=== PATIENT | female | born 1965 | race Caucasian/White ===

== ENCOUNTER 2019-08-05 00:09 | Emergency (ER) | payer OTHER ==
[~2019-08-05] VITALS: Ht 147.3 cm; Wt 50.8 kg
[2019-08-05 01:04] LABS: CALCIUM 8.9 mg/dL (8.5-10.1); CREATININE 0.9 mg/dL (0.6-1.3); POTASSIUM 3.6 mmol/L (3.5-5.1)
[2019-08-05 01:07] LABS: PROTIME 9.8 Seconds (9.20-11.50)
[2019-08-05 01:14] LABS: ALBUMIN 3.7 g/dL (3.4-5.0); TOTAL BILIRUBIN 0.1 mg/dL (<0.1-1.0); TOTAL PROTEIN 7.1 g/dL (6.4-8.2)
[2019-08-05 02:35] LABS: ABSOLUTE BASOPHILS 0.1 thou/uL (0.0-0.2); ABSOLUTE EOSINOPHILS 0.2 thou/uL (0.0-0.7); HEMATOCRIT 43.1 % (37.0-47.0); HEMOGLOBIN 14.7 gm/dL (12.0-15.0); WBC 8.8 thou/uL (4.0-11.0)
[2019-08-05 02:42] LABS: ABSOLUTE LYMPHOCYTES 3.8 thou/uL (0.8-5.3); ABSOLUTE MONOCYTES 0.5 thou/uL (0.0-1.2); ABSOLUTE NEUTROPHILS 4.3 thou/uL (1.6-8.1); BASOPHILS 0.7 %; EOSINOPHILS 1.9 %; LYMPHOCYTES 42.9 %; MCH 31.5 pg (26.0-34.0); MCV 92.4 fL (80.0-100.0); MONOCYTES 5.7 %; NUCLEATED RBCS 0 /100WBC; PLATELET COUNT* 330 thou/uL (150-400); POLYS 48.8 %; RBC 4.66 mil/uL (4.20-5.00); RDW-CV 14.3 % (10.5-14.5)
[2019-08-05 03:26] VITALS: BP 111/60
[2019-08-05] MEDS ORDERED: OXYCODONE HCL 55 MG PO (03:28)
[2019-08-05] MEDS ORDERED: FLEXERIL PO (03:28)
[2019-08-05] MEDS ORDERED: TORADOL 10 MG T10 MG PO (03:28)
--- NOTE | 2019-08-05 18:02 | EKG ---
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
== END 2019-08-05 03:26 | disposition home or self-care (01) ==
LOC: M.ERS 00:09
PROVIDERS: Personal Emergency Response Attendant
DX: R07.89 Other chest pain (principal)

== ENCOUNTER 2020-02-18 21:20 | Inpatient (IN) | payer BC ==
[~2020-02-18] VITALS: Ht 147.3 cm; Wt 48.5 kg
[~2020-02-18 21:20] MED LIST: FLEXERIL PO; OXYCODONE HCL 55 MG PO; TORADOL 10 MG T10 MG PO
[2020-02-18 21:24] VITALS: BP 142/74
[2020-02-18] MEDS ORDERED: MOVANA300 MG PO (21:30)
[2020-02-18 21:49] LABS: ABSOLUTE BASOPHILS 0.1 thou/uL (0.0-0.2); ABSOLUTE EOSINOPHILS 0.2 thou/uL (0.0-0.7); ABSOLUTE MONOCYTES 0.4 thou/uL (0.0-1.2); ABSOLUTE NEUTROPHILS 5.4 thou/uL (1.6-8.1); BASOPHILS 0.9 %; EOSINOPHILS 1.9 %; HEMATOCRIT 42.4 % (37.0-47.0); HEMOGLOBIN 14.9 gm/dL (12.0-15.0); LYMPHOCYTES 32.7 %; MCH 32.1 pg (26.0-34.0); MCHC 35.2 g/dL (28.0-37.0); MCV 91.3 fL (80.0-100.0); MONOCYTES 4.9 %; MPV 6.7 fl. (7.2-11.1); NUCLEATED RBCS 0 /100WBC; PLATELET COUNT* 300 thou/uL (150-400); POLYS 59.6 %; RBC 4.65 mil/uL (4.20-5.00); RDW-CV 14.2 % (10.5-14.5); WBC 9.1 thou/uL (4.0-11.0)
[2020-02-18 22:03] LABS: CALCIUM 8.8 mg/dL (8.5-10.1); CREATININE 0.7 mg/dL (0.6-1.3); POTASSIUM 3.7 mmol/L (3.5-5.1)
[2020-02-18 22:11] LABS: ALBUMIN 3.7 g/dL (3.4-5.0); MAGNESIUM 2.1 mg/dL (1.8-2.4); TOTAL BILIRUBIN 0.1 mg/dL (<0.1-1.0); TOTAL PROTEIN 7.1 g/dL (6.4-8.2)
[2020-02-18 22:21] LABS: URINE BILIRUBIN NEGATIVE (Negative); URINE BLOOD TRACE (Negative); URINE CLARITY CLEAR; URINE COLOR YELLOW; URINE GLUCOSE-RANDOM NEGATIVE (Negative); URINE KETONES NEGATIVE (Negative); URINE LEUKOCYTES-REFLEX NEGATIVE (Negative); URINE NITRITE-REFLEX NEGATIVE (Negative); URINE PROTEIN NEGATIVE (Negative); URINE SPECIFIC GRAVITY >= 1.030 (1.005-1.030); URINE UROBILINOGEN 0.2 E.U./dl (0.2-1.0)
[2020-02-19 00:37] VITALS: BP 108/62
[2020-02-19 01:00] VITALS: BP 107/65
[2020-02-19 07:15] VITALS: BP 100/60
--- NOTE | 2020-02-19 16:35 | EKG ---
[place] [address] ELECTROCARDIOGRAM REPORT Name: CARYL BRAVO Room: [address] ADM IN .R.#: [id number] Admission: 02/18/20 Attend Phys: Megan Campbell, Discharge: Date of : 61 Date of Service: 02/18/202121 Report #: [id number] THIS REPORT FOR: //name// [facility] ED Test Date: 2020-02-18 Test Time: 21:22:31 Pat Name: CARYL BRAVO Department: Room: [facility] Gender: F Key Cutter: DURGA : 1965 Requested By: Berkley Mejia Order Number: [id number] MD: Gopal Renteria Measurements Intervals [place] Rate: 76 P: 38 WA: 111 QRS: 61 QRSD: 85 T: 59 QT: 385 QTc: 433 Interpretive Statements Sinus rhythm Borderline short [place] interval Anteroseptal infarct, old, possible Compared to ECG 08/05/2019 00:16:04 No significant changes Electronically Signed On 02-19-2020 16:33:13 CDT by Gopal Renteria [email or web address] <ELECTRONICALLY SIGNED> By: Gopal Renteria MD, FAC 02/19/20 1633 21 21 Gopal Renteria MD, FAC /EPI
[2020-02-20] VITALS: BP 120/79
[2020-02-20 07:45] VITALS: BP 103/59
[2020-02-20 10:44] LABS: ABSOLUTE EOSINOPHILS 0.1 thou/uL (0.0-0.7); ABSOLUTE LYMPHOCYTES 1.8 thou/uL (0.8-5.3); ABSOLUTE MONOCYTES 0.4 thou/uL (0.0-1.2); ABSOLUTE NEUTROPHILS 4.5 thou/uL (1.6-8.1); BASOPHILS 0.7 %; HEMATOCRIT 39.3 % (37.0-47.0); HEMOGLOBIN 13.3 gm/dL (12.0-15.0); LYMPHOCYTES 26.6 %; MCH 31.5 pg (26.0-34.0); MCHC 33.9 g/dL (28.0-37.0); MCV 92.7 fL (80.0-100.0); MONOCYTES 6.5 %; MPV 6.9 fl. (7.2-11.1); NUCLEATED RBCS 0 /100WBC; PLATELET COUNT* 241 thou/uL (150-400); POLYS 65.2 %; RBC 4.24 mil/uL (4.20-5.00); RDW-CV 14.3 % (10.5-14.5); WBC 6.8 thou/uL (4.0-11.0)
[2020-02-20 11:00] LABS: ALBUMIN 3.1 g/dL (3.4-5.0); CALCIUM 7.9 mg/dL (8.5-10.1); CREATININE 0.8 mg/dL (0.6-1.3); POTASSIUM 3.4 mmol/L (3.5-5.1); TOTAL BILIRUBIN 0.3 mg/dL (<0.1-1.0); TOTAL PROTEIN 6.4 g/dL (6.4-8.2)
[2020-02-20 11:01] LABS: CHOLESTEROL 165 mg/dL (<200); HDL CHOLESTEROL 37 mg/dL (>40); LDL CHOLESTEROL 113 mg/dL (<100); SERUM ASSESSMENT Clear; TC:HDL 4.5 Ratio (Not establshd); TRIGLYCERIDE 77 mg/dL (<150); VLDL 15 mg/dL (<40)
--- NOTE | 2020-02-20 12:22 | 2DMMODE ---
[place] [address] 2 D/M-MODE ECHOCARDIOGRAM Name: CARYL BRAVO Room: [address] IN [facility]#: [id number] Admission: 02/18/20 Attend Phys: Megan Campbell, Discharge: Date of : 61 Date of Service: 02/20/20 1220 Report #: [id number] THIS REPORT FOR: cc: FAM - No family physician/PCP FAM - No family physician/PCP Gopal Renteria MD [facility] ~ APPROVED REPORT Study performed: 02/20/2020 09:52:39 EXAM: Comprehensive 2D, Doppler, and color-flow Echocardiogram Patient Location: In-Patient Room #: 313 Status: routine BSA: 1.40 HR: 79 bpm BP: 120/79 mmHg Rhythm: NSR Other Information Study Quality: Good Indications Murmur 2D Dimensions IVSd: 10.13 (7-11mm) LVOT Diam: 20.13 (18-24mm) LVDd: 41.67 mm PWd: 7.82 (7-11mm) Ascending Ao: 26.40 (22-36mm) LVDs: 23.40 (25-40mm) Aortic Root: 30.33 mm Volumes Left Atrial Volume (Systole) LA ESV Index: 25.30 mL/m2 Aortic Valve AoV Peak Alexandro.: 1.39 m/s AO Peak Gr.: 7.77 mmHg LVOT Max P.19 mmHg AO Mean Gr.: 3.75 mmHg LVOT Mean P.94 mmHg LVOT Max V: 1.24 m/s AO V2 VTI: 25.59 cm LVOT Mean V: 0.78 m/s KIRA (VTI): 2.92 cm2 LVOT V1 VTI: 23.46 [place] [address] 2 D/M-MODE ECHOCARDIOGRAM Name: CARYL BRAVO Room: [address] IN [facility].#: [id number] Admission: 02/18/20 Attend Phys: Megan Campbell, Discharge: Date of : 61 Date of Service: 02/20/20 1220 Report #: [id number] Mitral Valve E/A Ratio: 0.80 MV Decel. Time: 223.77 ms MV E Max Alexandro.: 0.89 m/s MV PHT: 64.89 ms MVA (PHT): 3.39 cm2 TDI E/Lateral E': 8.09 E/Medial E': 8.09 Medial E' Alexandro.: 0.11 m/s Lateral E' Alexandro.: 0.11 m/s Pulmonary Valve PV Peak Alexandro.: 0.94 m/s PV Peak Gr.: 3.52 mmHg Tricuspid Valve RAP Estimate: 5.00 mmHg TR Peak Gr.: 29.71 mmHg RVSP: 34.00 mmHg PA Pressure: 34.00 mmHg Left Ventricle The left ventricle is normal size. There is normal LV segmental wall motion. There is normal left ventricular wall thickness. Left ventricular systolic function is normal. LVEF is 60-65%. Grade I - abnormal relaxation pattern. Right Ventricle The right ventricle is normal size. The right ventricular systolic function is normal. Atria The left atrium size is normal. The right atrium size is normal. Aortic Valve The aortic valve is normal in structure. No aortic regurgitation is present. There is no aortic valvular stenosis. Mitral Valve The mitral valve is normal in structure. Mild mitral regurgitation. No evidence of mitral valve stenosis. Tricuspid Valve The tricuspid valve is normal in structure. Mild tricuspid regurgitation. Mild pulmonary hypertension. The RVSP is 35-[place] [address] 2 D/M-MODE ECHOCARDIOGRAM Name: CARYL BRAVO Room: [address] IN [facility]#: [id number] Admission: 02/18/20 Attend Phys: Megan Campbell, Discharge: Date of : 61 Date of Service: 02/20/20 1220 Report #: [id number] Pulmonic Valve The pulmonary valve is normal in structure. There is no pulmonic valvular regurgitation. Great Vessels The aortic root is normal in size. IVC is normal in size and collapses >50% with inspiration. Pericardium There is no pericardial effusion. <Conclusion> The left ventricle is normal size. There is normal left ventricular wall thickness. Left ventricular systolic function is normal. LVEF is 60-65%. Grade I - abnormal relaxation pattern. Mild mitral regurgitation. Mild tricuspid regurgitation. Mild pulmonary hypertension. The RVSP is 35-40 mmHg. IVC is normal in size and collapses >50% with inspiration. <ELECTRONICALLY SIGNED> By: Gopal Renteria MD, FACC 02/20/20 1220 1220 1220 Gopal Renteria MD, FACC /INF
--- NOTE | 2020-02-20 16:12 | CON ---
[address] [address] CONSULTATION Name: CARYL BRAVO Room: [address] IN M.R.#: [id number] Admission: 02/18/20 Attend Phys: Megan Campbell MD Discharge: Date of : 61 Report #: [id number] THIS REPORT FOR: //name// cc: ALEX Nicole family physician/PCP ALEX - Bonnie family physician/PCP ~ THIS REPORT FOR: //name// CC: ALEX physician/PCP Megan Campbell INDICATION: Chest pain. HISTORY OF PRESENT ILLNESS: The patient is a very pleasant 54-year-old white female who was admitted to the hospital with midsternal chest discomfort radiating to the back. Initially, this was felt to possibly be related to her gallbladder. Gallbladder disease has been ruled out. She states the pain was rather intense and lasted 10-15 minutes and radiated slightly to the right. She had shortness of breath and diaphoresis with this discomfort. The pain has since resolved. EKG shows sinus rhythm without acute ST or T-wave abnormalities. Troponins are unremarkable. She reports a history of silent NV documented on an EKG while being preoperatively evaluated for hysterectomy. She underwent the surgery without further cardiac evaluation with the exception of an echocardiogram. She reports a history of a murmur. Cardiac risk factors, tobacco use, and family history of coronary artery disease. Lipid status is unknown. She denies hypertension or diabetes. PAST MEDICAL HISTORY: 1. Chronic tobacco use. 2. COPD. 3. History of hysterectomy remotely. 4. Appendectomy. 5. Tonsillectomy. 6. History of cervical cancer, status post surgical resection. FAMILY HISTORY: Positive for coronary artery disease in her grandmother. SOCIAL HISTORY: The patient smokes cigarettes daily. She does not drink alcohol. ALLERGIES: Seasonal. No medical allergies. CURRENT MEDICATIONS: No current pharmaceutical medication. REVIEW OF SYSTEMS: A 14-point review of systems is positive for cough productive of minimal amounts of clear sputum, emphysema and asthma; [place] [address] CONSULTATION Name: CARYL BRAVO Room: [address] IN ..#: [id number] Admission: 02/18/20 Attend Phys: Megan Campbell MD Discharge: Date of : 61 Report #: [id number] discomfort and shortness of breath as outlined above; and history of heart murmur. She had some vomiting without hematemesis or remote history of ulcers, cervical cancer status post resection, seasonal allergies, and history of depression due to the passing of her 8 months ago. She has arthritis. She wears glasses without acute visual loss. Otherwise, 14-point review of systems was unremarkable. PHYSICAL EXAMINATION: VITAL SIGNS: Stable. Blood pressure 120/79, pulse 75. GENERAL: This is a thin, pleasant, elderly female in no distress. Mood and affect appropriate. HEENT: Extraocular muscles intact. Mucous membranes are moist. NECK: Shows no jugular venous distention. There are no carotid bruits. CHEST: Reveals diminished breath sounds with prolonged expiration. I do not appreciate wheezes or rales. CARDIOVASCULAR: Reveals a regular rhythm with a soft grade 1/6 systolic ejection murmur. ABDOMEN: Reveals normal bowel sounds. The abdomen is soft, nontender. EXTREMITIES: Shows no edema. Peripheral pulses palpable. SKIN: Dry. LABORATORY DATA: A 12-lead EKG shows sinus rhythm with no significant ST or T-wave abnormality. Labs are reviewed. Electrolytes within normal limits. BUN 12, creatinine 0.7, serum glucose 142. Troponins are less than 0.06 on 3 separate occasions. NT-proBNP is 45. CBC is unremarkable. Chest x-ray shows no acute cardiopulmonary abnormality. There is atherosclerosis noted in the aorta. IMPRESSION AND RECOMMENDATIONS: 1. Chest pain with some symptoms to suggest angina. We will proceed with noninvasive stress testing at this point in time. Further cardiac evaluation pending results of that study. 2. Chronic tobacco use. Smoking cessation discussed and advised. 3. Lipid status unknown. We will check fasting lipid profile. 4. Atherosclerosis noted on chest x-ray. We will check fasting lipid profile and consider whether lipid lowering would be indicated. 5. Cardiac murmur, consistent with aortic valvular sclerosis. We will obtain echocardiogram for further evaluation. <ELECTRONICALLY SIGNED> By: Gopal Renteria MD, FACC 02/20/20 1612 0940 1005[facility] Centerzenobia Renteria MD, FACC /nt
[2020-02-20 17:20] VITALS: BP 126/66
[2020-02-20 20:33] VITALS: BP 111/68
[2020-02-21 08:15] VITALS: BP 151/87
--- NOTE | 2020-02-21 12:50 | CARDNUC ---
[place] [address] CARDIAC NUCLEAR IMAGING REPORT Name: CARYL BRAVO Room: [facility] IN [facility]#: [id number] Admission: 02/18/20 Attend Phys: Megan Campbell, Discharge: Date of : 61 Date of Service: 02/21/20 1248 Report #: [id number] THIS REPORT FOR: cc: FAM - No family physician/PCP FAM - No family physician/PCP Gopal Renteria MD [facility] ~ APPROVED REPORT Imaging Protocol: Stress Tc-99m/Rest Tc-99m 2 days Study performed: 02/20/2020 09:43:00 Indication: Chest pain Patient Location: In-Patient Room #: 313 Stress Tech: Linda Matthews Stress Nurse: Annalee Beltran RN Ht: 4 ft 10 in Wt: 107 lbs BSA: 1.40 m2 BMI: 22.36 Medical History Medical History: CAD s/p DC, COPD Medications: NO Cardiac meds Allergies: No known drug allergies Cardiac Risk Factors: Age, Current Smoker, FHX of CAD Exercise History: Sedentary Resting Data Rest SPECT myocardial perfusion imaging was performed in supine position 30 minutes following the intravenous injection of 10.0 mCi of Tc-99m Sestamibi. Time of rest injection: 14:25 Date: 02/20/2020 The images were gated to evaluate regional wall motion and calculate left ventricular ejection fraction. Administration Route: IV Pharmacologic Stress Pharmacologic stress test was performed by injecting Regadenoson 0.4 mg IV push over 10-15 seconds immediately followed by the intravenous injection of 33.1 mCi of Tc-99m Sestamibi. Time of stress injection: 09:50 Date: 02/21/2020 Administration Route: IV Administration Site: Right Arm Gated Stress SPECT was performed 45 [place] [address] CARDIAC NUCLEAR IMAGING REPORT Name: CARYL RBAVO Room: [address] IN ..#: [id number] Admission: 02/18/20 Attend Phys: Megan Campbell, Discharge: Date of : 61 Date of Service: 02/21/20 1248 Report #: [id number] injection. The images were gated to evaluate regional wall motion and calculate left ventricular ejection fraction. Prone imaging was performed. Stress Test Details Stress Test: Pharmacologic stress testing performed using 0.4 mg of regadenoson per 5 mL given IV over 10 seconds. Reason for pharmacologic stress test: physical limitation. 60 mg caffeine given for other. HR Max Heart Rate (APMHR): 164 bpm Resting HR: 73 bpm Target HR (85% APMHR): 139 bpm Max HR Achieved: 111 bpm % of APMHR: 67 Recovery HR: 89 bpm BP Resting BP: 115/71 mmHg Max BP: 100/56 mmHg Recovery BP: 100/58 mmHg ECG Resting ECG: Sinus Rhythm Stress ECG: Sinus Tachycardia ST Change: None Maximum ST Deviation: 0.5 mm Arrhythmia: None Recovery ECG: Sinus Rhythm Recovery ST Change: None Recovery Arrhythmia: None Clinical Reason for Termination: Completed protocol The patient tolerated Lexiscan infusion without significant cardiac symptoms. Nurse Comments pt has swollen and painful legs and was not able to walk on treadmill. was given ivp caffeine for possible continued npo Stress ECG Conclusion Baseline twelve-lead EKG shows sinus rhythm with nonspecific T wave flattening. There were no significant ST segment changes. EKGs obtained during and post Lexiscan infusion showed sinus rhythm and sinus tachycardia with no significant ST segment changes when compared to baseline. There were no significant [place] [address] CARDIAC NUCLEAR IMAGING REPORT Name: CARYL BRAVO Room: [address]#: [id number] Admission: 02/18/20 Attend Phys: Megan Campbell, Discharge: Date of : 61 Date of Service: 02/21/20 1248 Report #: [id number] Study Quality Study: Good Artifact: No artifact Study Data At rest, the left ventricular ejection fraction was 83%.. Post stress, the left ventricular ejection was 81%.. TID = 1.01. Perfusion Perfusion images at rest and post Lexiscan stress showed uniform uptake of the radioisotope throughout the myocardium. There were no defects to suggest infarct or ischemia. Wall Motion Normal left ventricular wall motion. Nuclear Conclusion ECG Findings: negative for ischemia Clinical Findings: negative for ischemia Nuclear Findings: negative for ischemia Exercise Capacity: not assessed Left Ventricular Function: normal Risk Study: low Myocardial perfusion images show no defect to suggest infarct or ischemia. Left ventricular systolic function appears normal on gated studies. This is a low risk study. <Conclusion> Baseline twelve-lead EKG shows sinus rhythm with nonspecific T wave flattening. There were no significant ST segment changes. EKGs obtained during and post Lexiscan infusion showed sinus rhythm and sinus tachycardia with no significant ST segment changes when compared to baseline. There were no significant stress-induced arrhythmias. <ELECTRONICALLY SIGNED> By: Gopal Renteria MD, FACC 02/21/20 1248 1248 1248 Gopal Renteria MD, FACC /INF
[2020-02-21] MEDS ORDERED: LIPITOR40 MG PO (15:51)
[2020-02-21 15:54] LABS: ALBUMIN 3.2 g/dL (3.4-5.0); CALCIUM 8.4 mg/dL (8.5-10.1); CREATININE 0.8 mg/dL (0.6-1.3); POTASSIUM 3.3 mmol/L (3.5-5.1); TOTAL BILIRUBIN 0.3 mg/dL (<0.1-1.0); TOTAL PROTEIN 6.7 g/dL (6.4-8.2)
[2020-02-21 19:50] VITALS: BP 101/61
[2020-02-22 05:20] LABS: ABSOLUTE EOSINOPHILS 0.1 thou/uL (0.0-0.7); ABSOLUTE LYMPHOCYTES 2.9 thou/uL (0.8-5.3); ABSOLUTE MONOCYTES 0.9 thou/uL (0.0-1.2); ABSOLUTE NEUTROPHILS 3.5 thou/uL (1.6-8.1); BASOPHILS 0.5 %; EOSINOPHILS 1.5 %; HEMATOCRIT 35.7 % (37.0-47.0); HEMOGLOBIN 12.4 gm/dL (12.0-15.0); LYMPHOCYTES 39.1 %; MCH 31.6 pg (26.0-34.0); MCHC 34.8 g/dL (28.0-37.0); MCV 90.8 fL (80.0-100.0); MONOCYTES 11.5 %; MPV 7.2 fl. (7.2-11.1); NUCLEATED RBCS 0 /100WBC; PLATELET COUNT* 232 thou/uL (150-400); POLYS 47.4 %; RBC 3.93 mil/uL (4.20-5.00); RDW-CV 13.8 % (10.5-14.5); WBC 7.4 thou/uL (4.0-11.0)
[2020-02-22 05:32] LABS: ALBUMIN 2.9 g/dL (3.4-5.0); CALCIUM 8.4 mg/dL (8.5-10.1); CREATININE 0.6 mg/dL (0.6-1.3); POTASSIUM 3.6 mmol/L (3.5-5.1); TOTAL BILIRUBIN 0.3 mg/dL (<0.1-1.0); TOTAL PROTEIN 6.2 g/dL (6.4-8.2)
[2020-02-22 08:00] VITALS: BP 125/74
[2020-02-22] MEDS ORDERED: OXYCODONE HCL 55 MG PO ×2 (12:03→12:08)
[2020-02-22 13:22] VITALS: BP 125/74
== END 2020-02-22 14:00 | disposition home or self-care (01) | DRG 446 ==
LOC: M.ERS 21:20 → M.TBA-ER 23:07 → M.3W 23:07
PROVIDERS: Emergency Medicine; Internal Medicine; Internal Medicine Cardiovascular Disease; Surgery; ADMIT Internal Medicine
DX: K81.0 Acute cholecystitis (principal); J44.9 Chronic obstructive pulmonary disease, unspecified; I70.90 Unspecified atherosclerosis; F17.210 Nicotine dependence, cigarettes, uncomplicated; R07.9 Chest pain, unspecified; M79.605 Pain in left leg; M79.604 Pain in right leg; I35.8 Other nonrheumatic aortic valve disorders; I25.2 Old myocardial infarction; Z79.899 Other long term (current) drug therapy; Z90.49 Acquired absence of other specified parts of digestive tract; Z90.710 Acquired absence of both cervix and uterus; Z85.41 Personal history of malignant neoplasm of cervix uteri; Z82.49 Family history of ischemic heart disease and other diseases of the circulatory system; Z72.89 Other problems related to lifestyle

== ENCOUNTER → 2020-03-06 | Outpatient (CLI) | payer BC ==
[~2020-03-06] MED LIST changes: +LIPITOR40 MG PO; +MOVANA300 MG PO
== END ==
LOC: M.NUC 06:45
DX: R10.11 Right upper quadrant pain (principal)

== ENCOUNTER → 2020-04-08 | Outpatient (CLI) | payer BC | LOC: M.LAB 09:24 | PROVIDERS: ATTEND Internal Medicine Gastroenterology | DX: Z01.818 Encounter for other preprocedural examination (principal); Z11.59 Encounter for screening for other viral diseases; Z12.11 Encounter for screening for malignant neoplasm of colon; K21.9 Gastro-esophageal reflux disease without esophagitis; R07.89 Other chest pain; R10.13 Epigastric pain; Z80.0 Family history of malignant neoplasm of digestive organs ==